=== PATIENT | male | born 1985 | race Caucasian/White ===

== ENCOUNTER → 2021-06-25 | Outpatient (CLI) | payer OTHER ==
[~2021-06-25] MED LIST: FLEXERIL 10 MG10 MG PO; NAPROSYN500 MG PO; Voltaren Gel 1 % TOP
== END ==
LOC: KOH-I 14:45
DX: R05.9 Cough, unspecified (principal); M54.9 Dorsalgia, unspecified; M54.2 Cervicalgia; M47.816 Spondylosis without myelopathy or radiculopathy, lumbar region
CPT/HCPCS: 71046; 72040; 72070; 72100